=== PATIENT | male | born 1965 | race Caucasian/White ===

== ENCOUNTER 2020-04-19 08:15 | Day surgery (SDC) | payer OTHER ==
[~2020-04-19] VITALS: Ht 195.6 cm; Wt 125.0 kg
--- NOTE | ~2020-04-19 | OR ---
[facility] [address], [place] [address] Draft DATE OF OPERATION: 04/19/2020 SURGEON: Donnie Scales MD PREOPERATIVE DIAGNOSES: Deviated nasal septum, turbinate hypertrophy with nasal obstruction (anatomic). POSTOPERATIVE DIAGNOSES: Deviated nasal septum, turbinate hypertrophy with nasal obstruction (anatomic). PROCEDURES: 1. Nasal septoplasty, 28270. 2. Submucous resection of inferior turbinates bilaterally, 73181-52. INDICATIONS: This 54-year-old gentleman, has had nasal airway obstruction in most of his life. Since getting recently, it has become painfully obvious to both the couple that he cannot breathe through his nose, especially at night. The patient has tried fluticasone, decongestants, nothing seems to work very well. On examination in the office, the patient had a high septal deviation with impingement of the internal nasal valve on the left side and large turbinates. Also, the patient was found to have a very large spur inferiorly on the right side, so the both nasal airways were impaired. There was structural problems and turbinates did not decongest well enough with medical treatment. Hence, the above procedures were indicated. DESCRIPTION OF PROCEDURE: The patient was placed in supine position, had an orotracheal intubation, was placed under general anesthesia. The nasal septum was injected with about 4 mL of 0.25% Marcaine with 1:200,000 epinephrine and another 4 mL of 0.5% are 1% lidocaine 1 200,000 epinephrine as well as putting 2 mL in each inferior turbinates anteriorly. The incision on the septum was made at the junction with the floor on the left side, lifting up the mucoperichondrium and mucoperiosteum all the way back. Bone was from cartilage with the Cameron D knife. The reason for the impingement of the internal nasal valve was a bony deviation of the nasal bony septum. This was exposed by elevating the mucoperiosteum bilaterally, then cutting with Momin scissors, so the torsion was left on the cribriform plate and cribriform area. Very little cartilage was removed in this procedure and the anchor of the cartilage to the vomer and maxillary crest were left unaltered there. However, where the this large spur was situated on that deep right side, elevation was done creating two tunnels inferiorly and superior. Exposing it, there was some cartilage mixed into that spur with bone. It was cut with Momin PATIENT NAME: HETAL BARRAGAN OPERATIVE REPORT DATE OF : 69 REPORT #: [id number] PHYSICIAN: DONNIE SCALES MD PCP: CRISTAL SANTILLAN NP REPORT IS CONFIDENTIAL AND NOT TO BE RELEASED WITHOUT AUTHORIZATION [facility] [address], [place] [address] Draft scissors and then removed in a piecemeal fashion, so that then became an empty saccule of the septal envelope. These flaps could then be based down with 4-0 chromic. The anterior incision closed with 4-0, which opened up the both nasal airways better. To further increase the nasal airway, stab incisions were made inferiorly on both inferior turbinates. Then, using the caudal dissection tool to lift up the mucoperiosteum medially and laterally exposing that bone and removing the bone in piecemeal fashion with Emre forceps, and then further deep to that fracturing with a curette and the Cameron tool, removing it out of the airway creating this large anatomic airway without crippling the physiologic function of the inferior turbinates. Estimated blood loss was about 15 mL. The patient did well, required no packing, went to the recovery room in good condition. Donnie Scales MD [facility] /[id number] Copies: ~ PATIENT NAME: HETAL BARRAGAN OPERATIVE REPORT DATE OF : 69 REPORT #: [id number] PHYSICIAN: DONNIE SCALES MD PCP: CRISTAL SANTILLAN NP REPORT IS CONFIDENTIAL AND NOT TO BE RELEASED WITHOUT AUTHORIZATION
[~2020-04-19 08:15] MED LIST: AMLODIPINE BESY10 MG PO; ZESTRIL5 MG PO
--- NOTE | 2020-04-19 11:46 | NUR ---
04/19/20 1146 Toshia Shukla 1138- PT TO PACU IN SF POSITION. EYES CLOSED. RESPONDS TO VERBAL AND TACTILE STIMULI. BREATHING EASY AND UNLABORED. SPO2 >95% ON 6L O2 VIA SIMPLE MASK. PT DENIES PAIN AND NAUSEA. NASAL DRESSING CDI. 1145- PT SLEEPING COMFORTABLY. PT ENCOURAGED TO TAKE DEEP BREATHS THROUGH MOUTH. BREATHING EASY AND UNLABORED. SPO2 >95% ON 6 L O2 VIA SIMPLE MASK
--- NOTE | 2020-04-19 12:55 | NUR ---
THIS RN RESUMES CARE OF PT AT 1235 FROM LUNCH. PT STATES PAIN AND WOULD LIKE MEDICATION AT THIS TIME. THIS RN TELEPHONES DR. BOOKER AND RECEIVES NEW ORDERS. PAIN MEDICATION CALLED IN TO PT PREFERRED PHARMACY. PT PROVIDED CRACKERS AND PUDDING. SPOUSE REMAINS AT BEDSIDE. CALL LIGHT WITHIN REACH.
[2020-04-19] MEDS ORDERED: ACETAMINOPHEN-1 EAC1 PO (13:27)
--- NOTE | 2020-04-19 13:45 | NUR ---
PT USES CALL LIGHT TO NOTIFY RN OF URGE TO VOID. IV SALINE LOCKED AND SCD'S REMOVED. PT ENCOURAGED TO SIT AT SIDE OF BED PRIOR TO STANDING, DENIES DIZZINESS OR NAUSEA. STEADY GAIT WITH RN AND SPOUSE ASSIST, PT ABLE TO VOID 300 MLS DARK URINE WITH NO PROBLEMS. BACK TO DS RM 3 TO GET DRESSED WITH SPOUSE IN RM. PT AGREES TO OPEN CURTAIN WHEN FINISHED. 1400: DC INSTRUCTIONS GIVEN IN PRESENCE OF PT AND SPOUSE, NO QUESTIONS ASKED. DRIP DRESSING CHANGED PER PT REQUEST, SCANT AMOUNT OF RED DRAINAGE PRESENT. PT PROVIDED WITH EXTRA GAUZE AND PAPER TAPE FOR DRESSING CHANGES AT HOME. PT AWARE OF PRESCRIPTION CALLED INTO PREFERRED PHARMACY. PT DC FROM DS RM 3 VIA HOME WITH SPOUSE IN PERSONAL VEHICLE.
== END 2020-04-19 14:08 | disposition home or self-care (01) ==
LOC: DS 08:15
PROVIDERS: ATTEND Otolaryngology
PROC: 09BL0ZZ Excision of Nasal Turbinate, Open Approach (ICD-10-PCS; 2020-04-19)
PROC: 09BM0ZZ Excision of Nasal Septum, Open Approach (ICD-10-PCS; principal; 2020-04-19 10:00)
DX: J34.2 Deviated nasal septum (principal); J34.3 Hypertrophy of nasal turbinates; J34.89 Other specified disorders of nose and nasal sinuses; I10 Essential (primary) hypertension; Z79.899 Other long term (current) drug therapy; Z79.51 Long term (current) use of inhaled steroids
CPT/HCPCS: 00160; J0131; J0330; J1100; J2405; J2704; J3010; J3475; J3490; J7121